=== PATIENT | female | born 1965 | race Caucasian/White ===

== ENCOUNTER 2017-11-28 13:41 | Emergency (ER) | payer OTHER ==
[~2017-11-28] VITALS: Ht 157.5 cm; Wt 72.6 kg
[~2017-11-28 13:41] MED LIST: ALBUTEROL0.09 MG/A1 INH; ALPRAZOLAM0.5 M3 PO; AUGMENTIN 875 M1 TAB PO; CALCIUM 600-D 61 TAB PO; ENDOCET 325 MG-1 TA1 PO; ESTRADIOL1 MG PO; FISH OIL1000 MG PO; FLEXERIL 5MG TAB5 MG PO; FLEXERIL10 MG PO; FLONASE120 SPRAY/ NAS; HYDRODIURIL 2525 MG PO; MEDROL DOSEPAK1 PAC PO; NAPROSYN500 MG PO; NAPROXEN SOD550 MG PO; NAPROXEN500 MG PO; NATURAL IRON65 MG PO; PERCOCET 325 MG1 TA2 PO; POTASSIUM GLUC500 MG PO; PROAIR HFA0.09 MG/Ac INH; SERTRALINE HYD100 MG PO; TESSALON PERLE100 MG PO; TRAMADOL50 MG PO
[2017-11-28 13:46] VITALS: BP 111/82
--- NOTE | 2017-11-28 14:12 | ED NECK/BACK PAIN COMPLAINT ---
History of Present Illness General Chief Complaint: Hip Injury Stated Complaint: BILATERAL HIP PAIN, X 2 WEEKS Source: patient Exam Limitations: no limitations Vital Signs & Intake/Output Vital Signs & Intake/Output Vital Signs Date Time Temp Pulse Resp B/P B/P Pulse O2 O2 Flow FiO2 Mean Ox Delivery Rate 11/28 1346 97.0 106 18 111/82 99 Room Air Allergies Coded Allergies: aspirin (Severe, RASH, HIVES 03/10/16) codeine (SWELLING 03/12/16) erythromycin base (RASH 03/12/16) Reconcile Medications Albuterol Sulfate (Albuterol Sulfate Hfa) 90 MCG HFA.AER.AD 2 PUFF INH Q4-6 PRN PRN SHORTNESS OF BREATH 90 MCG PER PUFF Alprazolam 0.5 MG TAB 1 TAB PO BID ANXIETY (Reported) CALCIUM CARBONATE/VITAMIN D3 (Calcium 600 + Vit D Tablet) 600 MG/400 IU TAB 1 TAB PO DAILY SUPPLEMENT (Reported) Cyclobenzaprine (Flexeril 5MG Tab) 5 MG TAB 1 TAB PO TID PRN PAIN Estradiol 1 MG TAB 1 TAB PO DAILY HRT (Reported) Fluticasone Propionate (Flonase) 50 MCG/ACTUATION SPRAY.SUSP 1 SPRAY BESSIE BID PRN CONGESTION Hydrochlorothiazide (Hydrodiuril 25 MG Tab) 25 MG TABLET 1 TAB PO DAILY DIURETIC (Reported) Naproxen 500 MG TAB 1 TAB PO BID PAIN OMEGA-3/DHA/EPA/FISH OIL ([place]-3 Fish Oil 1,000 MG Sftg) (Unknown Strength) CAPSULE (Unknown Dose) PO BID SUPPLEMENT (Reported) OXYCODONE HCL/ACETAMINOPHEN (Percocet 5-325 MG Tablet) 325 MG/5 MG TAB 1 TAB PO Q4-6 PRN PRN BREAKTHROUGH PAIN Oxycodone HCl/Acetaminophen (Percocet 5-325 MG Tablet) 5 MG-325 MG TABLET 1 TAB PO BID PRN pain SERTRALINE HCL (Sertraline Hydrochloride) 100 MG TABLET 1 TAB PO DAILY DEPRESSION (Reported) Triage Note: 51 Y/O FEMALE C/O BILATERAL HIP PAIN X 2 WEEKS, "IT STARTS IN MY LOWER BACK AND WRAPS AROUND INTO MY HIPS AND THIGHS". DENIES KNOWN INJURY OR TRAUMA. STATES BILATERAL LEGS SWELL AT TIMES, ON HCTZ FOR SAME. PT DENIES URINARY SYMPTOMS Triage Nurses Notes Reviewed? yes Onset: Gradual Duration: week(s): Timing: recent history Quality/Severity: moderate Location: lumbar spine Radiation: buttocks, upper legs Method of Injury: unknown Loss of Consciousness: no loss of consciousness HPI: 51yo female with hx of COPD, back pain presents to ED complaining of low back radiating into bilateral hips 2 weeks. Patient reports associated numbness to left hip down toward left knee with paresthesias. There is no trauma or inciting that prior to onset of her symptoms. Patient recently traveled home from [place], she reports bilateral foot swelling which she has had in the past, this has gradually improved since onset. Patient denies skin changes, urinary incontinence, neck pain. Past History Travel History Traveled to [facility] past 21 day No Medical History Any Pertinent Medical History? see below for history Neurological: NONE EENT: NONE Cardiovascular: NONE Respiratory: asthma, COPD Gastrointestinal: NONE Hepatic: NONE Renal: NONE Musculoskeletal: chronic back pain, degen joint disease Psychiatric: depression Endocrine: NONE Blood Disorders: NONE Cancer(s): NONE SUPERVISING ARCHITECT/Reproductive: NONE Surgical History Surgical History: non-contributory Psychosocial History What is your primary language Puerto Rican Tobacco Use: Current Daily Use Daily Tobacco Use Amount/Type: => 5 Cigarettes daily Family History Hx Contributory? No Review of Systems Review of Systems Constitutional: Reports: no symptoms. Eyes: Reports: no symptoms. Ears, Nose, Throat, Mouth: Reports: no symptoms. Respiratory: Reports: no symptoms. Cardiovascular: Reports: no symptoms. Gastrointestinal/Abdominal: Reports: no symptoms. Musculoskeletal: Reports: see HPI. Skin: Reports: no symptoms. Neurological/Psychological: Reports: see HPI. All Other Systems: Reviewed and Negative Physical Exam Physical Exam General Appearance: well developed/nourished, no apparent distress, alert, awake Head: atraumatic, normal appearance Eyes: Bilateral: normal appearance. Ears, Nose, Throat, Mouth: hearing grossly normal Neck: normal inspection, supple, full range of motion Respiratory: no respiratory distress Cardiovascular: normal peripheral pulses Peripheral Pulses: 2+ dorsalis pedis (R), 2+ dorsalis pedis (L) Back: mild lumbar tenderness without deformity, bilateral lower back tenderness Extremities: bilateral hip tenderness Straight Leg Raising: Right: Pain at ____ degrees (30). Left: Pain at ____ degrees (30). Sensory: Medial Le: L4R, L4L. Top of Foot: 2: L5R, L5L. Sole of Foot: 2: SIR, DAVID. Motor: Deficit L4 Right: No Deficit L4 Left: No Deficit L5 Right: No Deficit L5 Left: No Deficit S1 Right: No Deficit S1 Right: No DTR: Patellar: 2: L4 Right, L4 Left. Neurologic/Psych: no motor/sensory deficits, awake, alert, oriented x 3 Skin: intact, normal color, warm/dry Core Measures CVA/TIA Diagnosis: No Progress Differential Diagnosis: cauda equina syn, herniated disc, myofascial strain, sciatica, spinal cord inj, T/L spine injury Plan of Care: Orders Procedure Date/time Status XRY-AP PELVIS 11/29 1411 Active XRY-LUMBOSACRAL SPINE 4 VIEWS 11/29 1411 Active Patient's x-rays show arthritic changes in chronic lumbosacral bony changes. Patient informed she may require an MRI for further evaluation. Patient was given referral to orthopedic physician. She is ambulatory here in the emergency Department without difficulty. She has no urinary incontinence, saddle anesthesia, low suspicion for cauda equina syndrome in this patient. Vital signs are stable, patient in no acute distress. The patient agrees with the plan of care. Diagnostic Imaging: Viewed by Me: Radiology Read. Discussed w/RAD: Radiology Read. Radiology Impression: PATIENT: TATY MANUEL PRESENT AGE: 51 PATIENT ACCOUNT NO: [id number] : 65 LOCATION: [facility] ORDERING PHYSICIAN: Lizzy WOODRUFF SERVICE DATE: 11/28/17 EXAM TYPE: RAD - XRY-AP PELVIS EXAMINATION: XR PELVIS CLINICAL INFORMATION: Evaluate for fracture , arthritis. Bilateral hip pain. COMPARISON: None TECHNIQUE: AP view of the pelvis. FINDINGS: No fracture. Iliopubic and iliopectineal lines are intact. The pelvic rings are maintained. The bilateral hip joints are maintained. Minimal subchondral sclerosis is noted along the superior acetabula. Sacral body and ed are intact. Pubic symphysis is normal. IMPRESSION: Mild bilateral hip arthrosis. No acute abnormalities. DICTATED BY: Shelton Asher MD DATE/TIME DICTATED:11/28/171454 POLICE CAPTAIN:L[place] DATE/TIME TRANSCRIBED:1454 CONFIDENTIAL, DO NOT COPY WITHOUT APPROPRIATE AUTHORIZATION. < Electronically signed in Other Vendor System> SIGNED BY: Shelton Asher MD 11/28/17 1502, PATIENT: TATY MANUEL PRESENT AGE: 51 PATIENT ACCOUNT NO: [id number] : 65 LOCATION: [facility] ORDERING PHYSICIAN: Lizzy WOODRUFF SERVICE DATE: 11/28/17 EXAM TYPE: RAD - XRY-LUMBOSACRAL SPINE 4 VIEWS EXAMINATION: XR LUMBOSACRAL SPINE CLINICAL INFORMATION: Evaluate for fracture, arthritis, degenerative disc disease. Low back pain. COMPARISON: None TECHNIQUE: 3 views of the lumbosacral spine were obtained. FINDINGS: Sagittal spinal alignment is maintained. There is left greater than right L4-L5 posterior facet arthrosis with bone density projecting over the neuroforaminal canal. There is loss of intervertebral disc space height throughout the lumbar spine. Vacuum disc phenomena is noted at L4- L5 and L5-S1. IMPRESSION: 1. Left greater than right L4-L5 posterior facet arthrosis likely with associated neuroforaminal narrowing. 2. Multilevel spondylosis with loss of intervertebral disc space height throughout the lumbar spine and vacuum disc phenomena noted at L4-L5 and L5-S1. DICTATED BY: Shelton Asher MD DATE/TIME DICTATED:11/28/171457 POLICE CAPTAIN:[place] DATE/ TIME TRANSCRIBED:11/28/171457 CONFIDENTIAL, DO NOT COPY WITHOUT APPROPRIATE AUTHORIZATION. <Electronically signed in Other Vendor System> SIGNED BY: Shelton Asher MD 11/28/17 1506 Departure Departure Disposition: HOME OR SELF CARE Condition: Stable Clinical Impression Primary Impression: Degenerative disc disease Qualifiers: Spinal region: lumbosacral Qualified Code: M51.37 - Other intervertebral disc degeneration, lumbosacral region Secondary Impressions: Hip arthrosis Referrals: Patient Has No Primary Care Dr (PCP/Family) Ameya RODRIGUEZ,Jeferson Lopez Additional Instructions: Take Percocet as prescribed as needed for pain. You may take this medication with ibuprofen. Follow-up with orthopedic referral. You may require further imaging such as MRI. Return if worsening symptoms or concerns. Please note that there might be incidental findings in your evaluation that are unrelated to the current emergency department visit. Please notify your primary care doctor about this emergency department visit in order to obtain and review all of the testing performed so that these incidental findings can be monitored as needed. If you had an x-ray performed, please understand that some fractures may not be seen on the initial set of x-rays. If your symptoms persist you might need a repeat set of x-rays to check for such a fracture. If you had a laceration evaluated, please understand that foreign bodies such as glass or wood may not be visible to the naked eye or on plain x-rays. If the wound becomes red, swollen, increasingly more painful or if there is any drainage from the wound, please have it reevaluated by a physician for the possibility of a retained foreign body. If you're unable to follow up as outlined in the discharge instructions please return to the emergency department. Thank you for choosing the [facility] Emergency Department for your care. It was a pleasure to serve you today. Departure Forms: Customer Survey General Discharge Information Prescriptions: Current Visit Scripts Oxycodone HCl/Acetaminophen (Percocet 5-325 MG Tablet) 1 TAB PO BID PRN pain #10 TAB
--- NOTE | 2017-11-28 15:02 | RADIOLOGY REPORT ---
EXAMINATION: XR PELVIS CLINICAL INFORMATION: Evaluate for fracture, arthritis. Bilateral hip pain. COMPARISON: None TECHNIQUE: AP view of the pelvis. FINDINGS: No fracture. Iliopubic and iliopectineal lines are intact. The pelvic rings are maintained. The bilateral hip joints are maintained. Minimal subchondral sclerosis is noted along the superior acetabula. Sacral body and ed are intact. Pubic symphysis is normal. IMPRESSION: Mild bilateral hip arthrosis. No acute abnormalities.
--- NOTE | 2017-11-28 15:07 | RADIOLOGY REPORT ---
EXAMINATION: XR LUMBOSACRAL SPINE CLINICAL INFORMATION: Evaluate for fracture, arthritis, degenerative disc disease. Low back pain. COMPARISON: None TECHNIQUE: 3 views of the lumbosacral spine were obtained. FINDINGS: Sagittal spinal alignment is maintained. There is left greater than right L4-L5 posterior facet arthrosis with bone density projecting over the neuroforaminal canal. There is loss of intervertebral disc space height throughout the lumbar spine. Vacuum disc phenomena is noted at L4-L5 and L5-S1. IMPRESSION: 1. Left greater than right L4-L5 posterior facet arthrosis likely with associated neuroforaminal narrowing. 2. Multilevel spondylosis with loss of intervertebral disc space height throughout the lumbar spine and vacuum disc phenomena noted at L4-L5 and L5-S1.
[2017-11-28] MEDS ORDERED: PERCOCET 5-3251 EACH PO (15:51)
== END 2017-11-28 15:58 ==
LOC: ERH 13:41
DX: M51.36 Other intervertebral disc degeneration, lumbar region (principal); M16.0 Bilateral primary osteoarthritis of hip
CPT/HCPCS: 72110; 72170